=== PATIENT | male | born 1985 | race Asian ===

== ENCOUNTER 2019-10-03 02:48 | Emergency (ER) | payer MEDICAID, OTHER ==
[~2019-10-03] VITALS: Ht 170.2 cm; Wt 68.0 kg
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
--- NOTE | 2019-10-03 02:52 | NUR ---
STATED TIME OF 7318
--- NOTE | 2019-10-03 02:54 | NUR ---
PHONE NUMBER [phone] WAS CALLED FROM: [phone] [id number] [facility] [id number]
[2019-10-03 02:55] VITALS: BP 0/0
--- NOTE | 2019-10-03 03:08 | NUR ---
CHRIS [facility] Addendum: 10/03/19 at 0316 by RIVEROR WILL CALL BACK.
--- NOTE | 2019-10-03 03:08 | NUR ---
[facility] PER KENNY, WILL WAIT FOR FURTHER INFORMATION FROM GIRLFRIEND OR FAMILY, THEN CALL BACK FIELD KILN BURNER'S OFFICE.
--- NOTE | 2019-10-03 04:37 | NUR ---
[facility]. CC#[phone].
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
== END 2019-10-03 05:48 | disposition expired ==
LOC: ER 02:50
DX: I46.9 Cardiac arrest, cause unspecified (principal)